=== PATIENT | female | born 1950 | race African-American/Black ===

== ENCOUNTER 2019-06-23 13:18 | Emergency (ER) | payer OTHER ==
[~2019-06-23] VITALS: Ht 165.1 cm; Wt 54.2 kg
[2019-06-23] MEDS ORDERED: IOHEXOL-350 100 ML BOTTLE ONE (14:43)
[2019-06-23 14:52] LABS: CLARITY URINE CLEAR (CLEAR); COLOR URINE YELLOW (YELLOW); KETONES URINE NEGATIVE (NEGATIVE); LEUKOCYTE ESTERASE URINE NEGATIVE (NEGATIVE); NITRITE URINE NEGATIVE (NEGATIVE); OCCULT BLOOD URINE NEGATIVE (NEGATIVE); PH URINE 5.5 (4.5-8.0); PROTEIN URINE 1+ (NEGATIVE); SPECIFIC GRAVITY URINE 1.024 (1.005-1.030)
[2019-06-23] MEDS ORDERED: ASPIRIN 325MG EC TABLET PO ONE (15:00)
[2019-06-23 15:23] LABS: BASOPHILS % 0.9 % (0.0-2.0); EOSINOPHILS % 0.9 % (0.0-5.0); HEMATOCRIT. 46.1 % (36.0-48.0); HEMOGLOBIN. 15.5 g/dL (12.0-16.0); LYMPHOCYTES % 30.1 % (20.0-50.0); MEAN CORPUSCULAR HEMOGLOBIN 30.4 pg (28.0-32.0); MEAN CORPUSCULAR VOLUME 90.3 fL (81.0-99.0); MEAN PLATELET VOLUME 10.3 fl (7.4-10.4); NEUTROPHILS % 62.1 % (40.0-76.0); PLATELET 126 x1000/uL (130-400)
[2019-06-23 15:26] LABS: INR 1.2
[2019-06-23 15:27] LABS: CHLORIDE 100 mEq/L (98-107)
[2019-06-23 15:32] LABS: ETHANOL BLOOD < 10 mg/dL
[2019-06-23 15:35] LABS: LDL CHOLESTEROL 78 mg/dL (5-100)
[2019-06-23 15:38] LABS: METHADONE URINE SCREEN NEGATIVE (NEGATIVE)
[2019-06-23 15:39] LABS: *AMPHETAMINES SCREEN URINE NEGATIVE (NEGATIVE); *BARBITURATES SCREEN URINE NEGATIVE (NEGATIVE); *BENZODIAZEPINES SCREEN URINE NEGATIVE (NEGATIVE); *COCAINE SCREEN URINE NEGATIVE (NEGATIVE); CANNABINOID URINE SCREEN PRESUMTIVE POSITIVE (NEGATIVE); OPIATES URINE SCREEN NEGATIVE (NEGATIVE); PHENCYCLIDINE URINE SCREEN NEGATIVE (NEGATIVE)
[2019-06-23] MEDS ORDERED: AMLODIPINE 2.5MG TABLET PO ONE (18:15)
[2019-06-23] MEDS ORDERED: LOSARTAN POTASSIUM 50 MG TABLET PO ONE (18:15)
[2019-06-23 18:30] VITALS: BP 187/94
== END 2019-06-23 19:41 | disposition short-term general hospital (02) ==
LOC: ER 13:18
DX: I63.233 Cerebral infarction due to unspecified occlusion or stenosis of bilateral carotid arteries (principal); R47.81 Slurred speech; I48.91 Unspecified atrial fibrillation; I10 Essential (primary) hypertension; Z79.01 Long term (current) use of anticoagulants; Z86.73 Personal history of transient ischemic attack (TIA), and cerebral infarction without residual deficits
CPT/HCPCS: 36415; 70450; 70496; 70498; 71045; 80053; 80305; 80320; 81003; 82962; 83721; 84484; 85025; 85610; 93005; 99291; Q9967; G0480